=== PATIENT | male | born 1955 ===

== ENCOUNTER → 2022-10-06 16:01 | Outpatient (BNVA) | payer OTHER, SELFPAY | PROVIDERS: Family Provider Nurse Practitioner Family; Visit Provider Internal Medicine Cardiovascular Disease | DX: R94.31 Abnormal electrocardiogram [ECG] [EKG] (principal); F20.9 Schizophrenia, unspecified; E03.9 Hypothyroidism, unspecified; R03.0 Elevated blood-pressure reading, without diagnosis of hypertension | CPT/HCPCS: 93005; 99204 ==